=== PATIENT | male | born 1995 | race African-American/Black ===

== ENCOUNTER 2021-08-10 09:07 | Emergency (ER) | payer SELFPAY ==
[2021-08-10] MEDS ORDERED: Ibuprofen 200 MG TAB ONE (09:53)
[2021-08-11 12:37] LABS: SARS-CoV-2 PCR by NAA DETECTED (NotDetected)
== END 2021-08-10 10:32 | disposition home or self-care (01) ==
LOC: CSHERS 09:07
DX: U07.1 COVID-19 (principal); M54.9 Dorsalgia, unspecified; F17.210 Nicotine dependence, cigarettes, uncomplicated
CPT/HCPCS: 99283; U0003; U0005